=== PATIENT | male | born 1955 | race African-American/Black ===

== ENCOUNTER 2016-04-28 11:15 | Emergency (ER) | payer MEDICARE ==
[2016-04-28 12:08] LABS: ALBUMIN 3.7 g/dL (3.4-5.0); ALKALINE PHOSPHATASE 84 U/L (46-116); ALT (SGPT) 21 U/L (10-68); BILIRUBIN - TOTAL 0.94 mg/dL (0.2-1.3); CALC OSMOLALITY 272 mosm/kg (275-300); CALCIUM 9.3 mg/dL (8.5-10.1); CARBON DIOXIDE 31.1 mmol/L (21.0-32.0); CHLORIDE - SERUM 100 mmol/L (98-107); GLUCOSE 92 mg/dL (74-106); POTASSIUM - SERUM 3.7 mmol/L (3.5-5.1); PROTEIN - SERUM 8.6 g/dL (6.4-8.2); SODIUM 138 mmol/L (136-145); UREA NITROGEN 5 mg/dL (7-18); eGFR NON AFRICAN AMERICAN 81 mL/min (90-120)
[2016-04-28 12:17] LABS: BASOPHILS 0.7 % (0.0-2.0); EOSINOPHILS 2.8 % (0-7); HEMATOCRIT 51.8 % (42.0-54.0); HEMOGLOBIN 17.6 g/dL (13.5-17.5); IMMATURE GRANULOCYTES 0.3 % (0-5); LYMPHOCYTES 36.2 % (15-50); MCH 35.2 pg (26.0-34.0); MCV 103.6 fL (80.0-100.0); MEAN PLATELET VOLUME 10.4 fL (7.4-10.4); MONOCYTES 15.7 % (2-11); NEUTROPHILS 44.3 % (40-80); PLATELET COUNT 169 10x3/uL (130-400); RDW 13.7 % (11.5-14.5); WBC 6.1 10x3/uL (4.8-10.8)
== END 2016-04-28 14:00 | disposition home or self-care (01) ==
LOC: D.ER 11:15
PROVIDERS: Emergency Medicine; Physician Assistant
DX: Z91.14 Patient's other noncompliance with medication regimen (principal); E78.5 Hyperlipidemia, unspecified; I10 Essential (primary) hypertension; F17.200 Nicotine dependence, unspecified, uncomplicated

== ENCOUNTER 2017-08-23 20:23 | Emergency (ER) | payer MEDICARE ==
[~2017-08-23] VITALS: Ht 177.8 cm; Wt 56.7 kg
[2017-08-23 20:55] VITALS: Ht 177.8 cm; Wt 56.7 kg
[2017-08-23] MEDS ORDERED: VENTOLIN HFA18 GM INH (20:56)
[2017-08-23] MEDS ORDERED: PRINIVIL20 MG (20:56)
[2017-08-23] MEDS ORDERED: NORVASC10 MG PO (20:57)
[2017-08-23] MEDS ORDERED: WELLBUTRIN XL150 M1 PO (20:57)
[2017-08-23] MEDS ORDERED: PROTONIX20 MG PO (20:58)
[2017-08-23] MEDS ORDERED: TOPROL XL25 MG PO (20:58)
[2017-08-23] MEDS ORDERED: FERROUS SULFAT325 MG PO (20:58)
[2017-08-23] MEDS ORDERED: ELLIPTA (20:59)
[2017-08-23] MEDS ORDERED: LOVASTATIN20 MG PO (20:59)
[2017-08-24] MEDS ORDERED: TORADOL10 MG PO (01:15)
[2017-08-24 01:47] VITALS: BP 145/90
== END 2017-08-24 01:47 | disposition home or self-care (01) ==
LOC: D.ER 20:23
DX: M77.02 Medial epicondylitis, left elbow (principal); F17.200 Nicotine dependence, unspecified, uncomplicated

== ENCOUNTER 2018-04-17 20:01 | Emergency (ER) | payer MEDICARE ==
[~2018-04-17] VITALS: Ht 177.8 cm; Wt 58.7 kg
[~2018-04-17 20:01] MED LIST: ELLIPTA; FERROUS SULFAT325 MG PO; LOVASTATIN20 MG PO; NORVASC10 MG PO; PRINIVIL20 MG; PROTONIX20 MG PO; TOPROL XL25 MG PO; TORADOL10 MG PO; VENTOLIN HFA18 GM INH; WELLBUTRIN XL150 M1 PO
[2018-04-17 20:19] VITALS: Ht 177.8 cm; Wt 58.7 kg
[2018-04-17] MEDS ORDERED: PLAVIX75 MG PO (20:21)
[2018-04-17] MEDS ORDERED: CELEXA20 MG PO (20:21)
[2018-04-17] MEDS ORDERED: VOLTAREN75 MG PO (23:41)
[2018-04-17] MEDS ORDERED: TYLENOL W/CODEI1 TAB PO (23:41)
[2018-04-18 00:20] VITALS: BP 151/77
== END 2018-04-18 00:20 | disposition home or self-care (01) ==
LOC: D.ER 20:01
DX: S82.831A Other fracture of upper and lower end of right fibula, initial encounter for closed fracture (principal); W18.30XA Fall on same level, unspecified, initial encounter; Y93.89 Activity, other specified; Y92.019 Unspecified place in single-family (private) house as the place of occurrence of the external cause